=== PATIENT | male | born 1950 | race Caucasian/White ===

== ENCOUNTER 2017-05-26 06:56 | Day surgery (SDC) | payer MEDICARE, OTHER ==
[~2017-05-26 06:56] MED LIST: Dextrose 5%-0.45% NaCl 1,000 ML IV SCH; Midazolam 1 MG/ML 2 ML SDV ONE; Sodium Chloride 0.9% 10 ML Syringe FLUSH PRN; fentaNYL 100 MCG/2 ML SDV ONE
[2017-05-26] MEDS ORDERED: Midazolam 1 MG/ML 2 ML SDV IV ONE ×7 (06:57→08:26)
[2017-05-26] MEDS ORDERED: fentaNYL 100 MCG/2 ML SDV IV ONE ×4 (06:57→08:28)
--- NOTE | 2017-05-26 13:25 | OR ---
DATE: 05/26/2017 PROCEDURES: Total colonoscopy, NBI, and cold snare polypectomy. INSTRUMENT USED: CF-H180AL Olympus video colonoscope. PREMEDICATIONS: Fentanyl 125 mcg intravenous, Versed 4 mg intravenous, and nasal O2 cannula and mask. INDICATION: The patient with previous villotubular adenoma. Surveillance colonoscopic examination is done for detection of any polypoid lesions and removal, endoscopic hemostasis therapy if needed. DESCRIPTION OF PROCEDURE: Initial rectal exam was unremarkable. Rigid anoscopy was normal. The colonoscope was passed with ease. Numerous scattered diverticula were noted in the distal left colon along with deformity. There was moderate amount of fecal material noted. The scope was passed with ease up to the ileocecal area, photographs were taken of normal-appearing cecum, identified by landmarks of appendiceal orifice and double-bulged ileocecal folds. No bleeding was noted from any of the visualized areas at the commencement of the examination. No stricture. No vascular ectasia. No large isolated ulcerations seen. No evidence of diffuse inflammatory bowel disease in the form of friability, contact bleeding, or ulcerations. Probing the proximal sides of folds and flexures, using adequate distention and clearing up the stool material, withdrawal of the scope was made. In the mid ascending colon, 3 mm sized benign-appearing polyp was noted, NBI views were obtained, photographs were taken, cold snare polypectomy was done. The tissue was retrieved and sent for histopathology. No bleeding was noted from any of the visualized areas at the completion of examination. IMPRESSION: 1. Diverticulosis. 2. Ascending colon polyp. The patient tolerated the procedure well. [facility] /[id number]
--- NOTE | 2017-05-26 13:37 | LETTER ---
05/26/2017 Watson Malagon MD [facility] [address] [place] [address] RE: TOMAS QUEVEDO : [address] Malagon: Mr. Tomas Quevedo had colonoscopic examination done this morning and he tolerated the procedure well. I herewith send a copy of the endoscopy note and photographs for your review. Thank you. Sincerely, [facility] /[id number]
== END 2017-05-26 10:30 | disposition home or self-care (01) ==
LOC: DL.ENDO 06:56
PROVIDERS: ATTEND Internal Medicine Gastroenterology
DX: Z12.11 Encounter for screening for malignant neoplasm of colon (principal); K63.5 Polyp of colon; K57.30 Diverticulosis of large intestine without perforation or abscess without bleeding; I10 Essential (primary) hypertension; E66.09 Other obesity due to excess calories; E78.5 Hyperlipidemia, unspecified; Z86.010 Personal history of colon polyps; Z79.82 Long term (current) use of aspirin; Z88.0 Allergy status to penicillin
CPT/HCPCS: 88305; J2250; J3010; J7042

== ENCOUNTER 2022-08-03 06:19 | Day surgery (SDC) | payer MEDICARE, OTHER ==
[2022-08-03] MEDS ORDERED: fentaNYL 100 MCG/2 ML SDV IV ONE (06:20)
[2022-08-03] MEDS ORDERED: Midazolam 1 MG/ML 2 ML SDV IV ONE (06:20)
[2022-08-03] MEDS: Dextrose 5%-0.45% NaCl 1,000 ML IV SCH (06:49)
[2022-08-03] MEDS ORDERED: Midazolam 1 MG/ML 2 ML SDV ONE (07:38)
[2022-08-03] MEDS ORDERED: fentaNYL 100 MCG/2 ML SDV ONE (07:38)
[2022-08-03] MEDS: fentaNYL 100 MCG/2 ML SDV IV ONE ×4 (07:40→07:53)
[2022-08-03] MEDS: Midazolam 1 MG/ML 2 ML SDV IV ONE ×6 (07:41→07:51)
== END 2022-08-03 09:18 | disposition home or self-care (01) ==
LOC: DL.ENDO 06:19
PROVIDERS: ATTEND Internal Medicine Gastroenterology
DX: Z12.11 Encounter for screening for malignant neoplasm of colon (principal); K64.8 Other hemorrhoids; K57.30 Diverticulosis of large intestine without perforation or abscess without bleeding; I10 Essential (primary) hypertension; E78.5 Hyperlipidemia, unspecified; M54.50 Low back pain, unspecified; F32.A Depression, unspecified; N40.0 Benign prostatic hyperplasia without lower urinary tract symptoms; M19.90 Unspecified osteoarthritis, unspecified site; E66.09 Other obesity due to excess calories; Z86.010 Personal history of colon polyps; Z68.31 Body mass index [BMI] 31.0-31.9, adult; Z98.890 Other specified postprocedural states; Z88.0 Allergy status to penicillin
CPT/HCPCS: 45378; J2250; J3010; J7042